=== PATIENT | male | born 1980 | race Caucasian/White ===

== ENCOUNTER 2018-10-22 04:06 | Emergency (ER) | payer OTHER ==
[~2018-10-22] VITALS: Ht 193 cm; Wt 83.9 kg
[2018-10-22] MEDS ORDERED: SUMATRIPTAN SUCCINATE 25 MG TABLET ONE ×2 (04:41→04:45)
--- NOTE | 2018-10-22 04:46 | NUR ---
pt states normally takes Imitrex 100mg for migraines. Dr. Malik notified.
--- NOTE | 2018-10-22 04:55 | NUR ---
Patient discharged to home in stable condition. Written and verbal after care instructions given. Patient verbalizes understanding of instruction.
[2018-10-22 04:56] VITALS: BP 139/93
[2018-10-22] MEDS ORDERED: SUMATRIPTAN SUCCINATE 25 MG TABLET PO ONE ×2 (05:00)
== END 2018-10-22 04:56 | disposition home or self-care (01) ==
LOC: ER 04:09
DX: G43.909 Migraine, unspecified, not intractable, without status migrainosus (principal); F17.200 Nicotine dependence, unspecified, uncomplicated
CPT/HCPCS: 99283; A4606; Z7610